=== PATIENT | female | born 1995 | race Caucasian/White ===

== ENCOUNTER 2020-02-18 12:33 | Emergency (ER) | payer OTHER ==
[~2020-02-18] VITALS: Ht 160 cm; Wt 63.5 kg
[~2020-02-18 12:33] MED LIST: AMOX500 PO; ANTIBIOTIC PO; BIRTH CONTROL PILL; CELE200 PO; CELEXA; CITA20 PO; DOCU100 PO; GABA300 PO; GABA400 PO; GABAPENTIN; HYDACE10B PO; HYDACE5 PO; HYDHCL25 PO; IBUP600 PO; IBUP800 PO; LORA10ER PO; MEBE100 PO; METCAR500 PO; NITR100CA PO; Naprosyn500 MG PO; OXYACE5T PO; OXYC10TA19 PO; OXYC5 PO; POTCHL20ER PO; PROM25 PO; RXOXYACE PO; SULTRIDS PO; SULTRISS PO; TRAM50 PO; ZYRTEC; [UNRECOGNIZED DRUG - OTHER]
[2020-02-18] MEDS ORDERED: IRON18 MG (14:08)
[2020-02-18] MEDS ORDERED: Bactrim Ds Tab1 EACH PO (14:09)
== END 2020-02-18 14:15 | disposition home or self-care (01) ==
LOC: ER 12:33
DX: L03.011 Cellulitis of right finger (principal); B07.9 Viral wart, unspecified; F17.200 Nicotine dependence, unspecified, uncomplicated; Z88.5 Allergy status to narcotic agent; Z79.3 Long term (current) use of hormonal contraceptives
CPT/HCPCS: 99282

== ENCOUNTER 2020-07-12 04:00 | Emergency (ER) | payer OTHER ==
[~2020-07-12] VITALS: Ht 160 cm; Wt 68.0 kg
[~2020-07-12 04:00] MED LIST changes: +Bactrim Ds Tab1 EACH PO; +IRON18 MG
[2020-07-12 05:18] LABS: BASOPHILS ABSOLUTE AUTO 0.03 K/mm3 (0.00-0.23); BASOPHILS PERCENT AUTO 0 % (0-2); EOSINOPHILS ABSOLUTE AUTO 0.15 K/mm3 (0.00-0.68); EOSINOPHILS PERCENT AUTO 2 % (0-6); Hematocrit 41.3 % (33.0-51.0); Hemoglobin 13.5 g/dL (11.5-16.0); IMMATURE GRAN ABSOLUTE AUTO 0.03 K/mm3 (0.00-0.10); IMMATURE GRAN PERCENT AUTO 0 % (0-1); LYMPHOCYTES ABSOLUTE AUTO 2.91 K/mm3 (0.84-5.20); LYMPHOCYTES PERCENT AUTO 32 % (21-46); MONOCYTES ABSOLUTE AUTO 0.75 K/mm3 (0.16-1.47); MONOCYTES PERCENT AUTO 8 % (4-13); Mean Corpuscular HGB 28.9 pg (26.0-34.0); Mean Corpuscular HGB Conc 32.7 g/dL (31.5-36.5); Mean Corpuscular Volume 88 fL (80-100); Mean Platelet Volume 9.9 fL (9.1-12.4); NEUTROPHILS ABSOLUTE AUTO 5.16 K/mm3 (1.96-9.15); NEUTROPHILS PERCENT AUTO 57 % (41-73); Platelet Count 342 K/mm3 (150-400); RDW Coefficient Variation 12.5 % (11.7-14.2); Red Blood Cell Count 4.67 M/mm3 (3.80-5.20); White Blood Cell Count 9.03 K/mm3 (4.00-11.30)
[2020-07-12 05:41] LABS: Alanine Aminotransfer (ALT/SGP 26 U/L (12-78); Albumin, Blood 3.4 g/dL (3.4-5.0); Albumin/Globulin Ratio 0.9 (0.8-1.8); Alk Phos 66 U/L (50-136); Anion Gap 6 mmol/L (6-16); Aspartate Aminotrans (AST/SGOT 13 U/L (12-37); Bilirubin, Total 0.2 mg/dL (0.1-1.0); Blood Urea Nitrogen 10 mg/dL (8-24); Bun/Creatinine Ratio 14.8 (12.0-20.0); CO2, Blood 24 mmol/L (21-32); Calcium, Blood 8.8 mg/dL (8.5-10.1); Chloride, Blood 111 mmol/L (98-108); Creatinine, Blood 0.68 mg/dL (0.40-1.00); Globulin, Blood 3.6 g/dL (2.2-4.0); Glomerular Filtration Rate >60 (60-); Glucose, Blood 87 mg/dL (70-99); Sodium, Blood 141 mmol/L (136-145)
[2020-07-12] MEDS ORDERED: Valium5 MG PO (06:01)
[2020-07-12] MEDS ORDERED: ACETAMINOPHEN500 MG PO (06:01)
[2020-07-12] MEDS ORDERED: IBUP600 PO (06:01)
[2020-07-12] MEDS ORDERED: LIDO700A20 TOP (06:01)
[2020-07-12 06:08] LABS: Source, Urine Clean Catch
[2020-07-12 06:33] LABS: Appearance, Urine Hazy (Clear); Bilirubin, Urine Neg (Neg); Blood, Urine Neg (Neg); Color, Urine Yellow (P-Yellow); Glucose Qualitative, Urine Neg (Neg); Ketones, Urine Neg (Neg); Leukocyte Esterase, Urine 2+ (Neg); Nitrite, Urine Neg (Neg); Protein, Urine Neg (Neg); Specific Gravity, Urine 1.015 (1.003-1.022); Urobilinogen, Urine NORM (Normal); pH, Urine 6.5 (5.0-8.0)
[2020-07-12 06:45] LABS: Amorphous Light (0-Heavy); Bacteria Many /hpf; Mucus Mod (0-Heavy); Red Blood Cells, Urine 0-2 /hpf (0-2); Squamous Epithelial Cells Many /hpf (Few)
[2020-07-12] MEDS ORDERED: Macrobid 100 M100 MG PO (06:52)
== END 2020-07-12 07:22 | disposition home or self-care (01) ==
LOC: ER 04:00
PROVIDERS: Emergency Medicine
DX: N39.0 Urinary tract infection, site not specified (principal); I25.2 Old myocardial infarction; Z88.5 Allergy status to narcotic agent; Z79.899 Other long term (current) drug therapy
CPT/HCPCS: 36415; 80053; 81001; 83690; 85025; 99283; A9270

== ENCOUNTER 2020-09-01 20:13 | Emergency (ER) | payer OTHER ==
[~2020-09-01] VITALS: Ht 160 cm; Wt 64.9 kg
[~2020-09-01 20:13] MED LIST changes: +ACETAMINOPHEN500 MG PO; +LIDO700A20 TOP; +Macrobid 100 M100 MG PO; +Valium5 MG PO
[2020-09-01 20:35] LABS: BASOPHILS ABSOLUTE AUTO 0.04 K/mm3 (0.00-0.23); BASOPHILS PERCENT AUTO 0 % (0-2); EOSINOPHILS ABSOLUTE AUTO 0.06 K/mm3 (0.00-0.68); EOSINOPHILS PERCENT AUTO 1 % (0-6); Hematocrit 40.9 % (33.0-51.0); Hemoglobin 13.6 g/dL (11.5-16.0); IMMATURE GRAN ABSOLUTE AUTO 0.02 K/mm3 (0.00-0.10); IMMATURE GRAN PERCENT AUTO 0 % (0-1); LYMPHOCYTES PERCENT AUTO 23 % (21-46); MONOCYTES ABSOLUTE AUTO 0.51 K/mm3 (0.16-1.47); MONOCYTES PERCENT AUTO 6 % (4-13); Mean Corpuscular HGB 29.4 pg (26.0-34.0); Mean Corpuscular HGB Conc 33.3 g/dL (31.5-36.5); Mean Corpuscular Volume 89 fL (80-100); Mean Platelet Volume 9.7 fL (9.1-12.4); NEUTROPHILS ABSOLUTE AUTO 6.25 K/mm3 (1.96-9.15); NEUTROPHILS PERCENT AUTO 70 % (41-73); Platelet Count 317 K/mm3 (150-400); RDW Coefficient Variation 12.5 % (11.7-14.2); RDW Standard Deviation 40.7 fL (35.1-46.3); Red Blood Cell Count 4.62 M/mm3 (3.80-5.20); White Blood Cell Count 8.98 K/mm3 (4.00-11.30)
[2020-09-01 20:53] LABS: Alanine Aminotransfer (ALT/SGP 24 U/L (12-78); Albumin, Blood 3.9 g/dL (3.4-5.0); Alk Phos 75 U/L (50-136); Anion Gap 9 mmol/L (6-16); Aspartate Aminotrans (AST/SGOT 14 U/L (12-37); Bilirubin, Total 0.3 mg/dL (0.1-1.0); Blood Urea Nitrogen 16 mg/dL (8-24); Bun/Creatinine Ratio 15.2 (12.0-20.0); CO2, Blood 25 mmol/L (21-32); Calcium, Blood 9.4 mg/dL (8.5-10.1); Chloride, Blood 107 mmol/L (98-108); Creatinine, Blood 1.05 mg/dL (0.40-1.00); Globulin, Blood 3.9 g/dL (2.2-4.0); Glomerular Filtration Rate >60 (60-); Glucose, Blood 90 mg/dL (70-99); Potassium, Blood 4.2 mmol/L (3.5-5.5); Sodium, Blood 141 mmol/L (136-145); Total Protein, Blood 7.8 g/dL (6.4-8.2)
[2020-09-01 22:11] LABS: Source, Urine Clean Catch
[2020-09-01 22:15] LABS: Bilirubin, Urine Neg (Neg); Blood, Urine 1+ (Neg); Glucose Qualitative, Urine Neg (Neg); Ketones, Urine Neg (Neg); Leukocyte Esterase, Urine 3+ (Neg); Nitrite, Urine Neg (Neg); Protein, Urine 1+ (Neg); Urobilinogen, Urine NORM (Normal)
[2020-09-01 22:22] LABS: Appearance, Urine Hazy (Clear); Color, Urine Yellow (P-Yellow)
[2020-09-01 22:23] LABS: Bacteria Many /hpf; Red Blood Cells, Urine 0-2 /hpf (0-2); Squamous Epithelial Cells Many /hpf (Few); White Blood Cells, Urine 25-50 /hpf (0-5)
[2020-09-01] MEDS ORDERED: Flagyl500 MG PO (22:38)
== END 2020-09-01 23:01 | disposition home or self-care (01) ==
LOC: ER 20:13
PROVIDERS: Physician Assistant
DX: N30.90 Cystitis, unspecified without hematuria (principal); F17.200 Nicotine dependence, unspecified, uncomplicated; Z79.899 Other long term (current) drug therapy; Z88.5 Allergy status to narcotic agent
CPT/HCPCS: 74176; 80053; 81001; 81025; 83690; 85025; 87086; 99284-25; A9270

== ENCOUNTER 2021-01-24 18:50 | Emergency (ER) | payer OTHER ==
[~2021-01-24] VITALS: Ht 160 cm; Wt 65.8 kg
[~2021-01-24 18:50] MED LIST changes: +Flagyl500 MG PO
[2021-01-24 19:18] LABS: BASOPHILS ABSOLUTE AUTO 0.04 K/mm3 (0.00-0.23); BASOPHILS PERCENT AUTO 1 % (0-2); EOSINOPHILS ABSOLUTE AUTO 0.12 K/mm3 (0.00-0.68); EOSINOPHILS PERCENT AUTO 2 % (0-6); Hemoglobin 13.1 g/dL (11.5-16.0); IMMATURE GRAN ABSOLUTE AUTO 0.02 K/mm3 (0.00-0.10); IMMATURE GRAN PERCENT AUTO 0 % (0-1); LYMPHOCYTES ABSOLUTE AUTO 1.94 K/mm3 (0.84-5.20); LYMPHOCYTES PERCENT AUTO 24 % (21-46); MONOCYTES ABSOLUTE AUTO 0.56 K/mm3 (0.16-1.47); MONOCYTES PERCENT AUTO 7 % (4-13); Mean Corpuscular HGB 28.9 pg (26.0-34.0); Mean Corpuscular HGB Conc 32.8 g/dL (31.5-36.5); Mean Corpuscular Volume 88 fL (80-100); Mean Platelet Volume 10.7 fL (9.1-12.4); NEUTROPHILS ABSOLUTE AUTO 5.37 K/mm3 (1.96-9.15); NEUTROPHILS PERCENT AUTO 67 % (41-73); Platelet Count 326 K/mm3 (150-400); RDW Coefficient Variation 12.6 % (11.7-14.2); RDW Standard Deviation 41.1 fL (35.1-46.3); Red Blood Cell Count 4.53 M/mm3 (3.80-5.20); White Blood Cell Count 8.05 K/mm3 (4.00-11.30)
[2021-01-24 19:41] LABS: Anion Gap 6 mmol/L (6-16); Blood Urea Nitrogen 13 mg/dL (8-24); Bun/Creatinine Ratio 15.3 (12.0-20.0); CO2, Blood 23 mmol/L (21-32); Calcium, Blood 8.9 mg/dL (8.5-10.1); Chloride, Blood 110 mmol/L (98-108); Creatinine, Blood 0.85 mg/dL (0.40-1.00); Glomerular Filtration Rate >60 (60-); Glucose, Blood 85 mg/dL (70-99); Potassium, Blood 3.7 mmol/L (3.5-5.5); Sodium, Blood 139 mmol/L (136-145)
== END 2021-01-24 21:39 | disposition home or self-care (01) ==
LOC: ER 18:50
PROVIDERS: Student in an Organized Health Care Education/Training Program
DX: R55 Syncope and collapse (principal); F17.200 Nicotine dependence, unspecified, uncomplicated; Z88.5 Allergy status to narcotic agent; Z79.899 Other long term (current) drug therapy
CPT/HCPCS: 80048; 84484; 85025; 93005; 93010; 99285-25

== ENCOUNTER → 2024-06-27 | Outpatient (CLI) | payer MEDICARE, OTHER | LOC: PLD 13:30 → LAB 13:30 → LAB SHORT 13:30 | DX: D06.9 Carcinoma in situ of cervix, unspecified (principal); Z87.42 Personal history of other diseases of the female genital tract | CPT/HCPCS: 88305; 88342 ==

== ENCOUNTER 2024-08-18 01:48 | Emergency (ER) | payer MEDICARE, OTHER ==
[~2024-08-18] VITALS: Ht 160 cm; Wt 83.0 kg
[2024-08-18 02:02] VITALS: BP 125/86
[2024-08-18] MEDS ORDERED: Acetaminophen 500 MG Tab PO ONE (02:05)
[2024-08-18] MEDS ORDERED: Ketorolac Tromethamine 30mg Vial IM ONE (02:05)
== END 2024-08-18 02:41 | disposition home or self-care (01) ==
LOC: ER 01:48
DX: S60.211A Contusion of right wrist, initial encounter (principal); F43.10 Post-traumatic stress disorder, unspecified; F17.200 Nicotine dependence, unspecified, uncomplicated; Z88.5 Allergy status to narcotic agent; W22.01XA Walked into wall, initial encounter
CPT/HCPCS: 73100; 73130; 96372; 99283-25; A9270; J1885

== ENCOUNTER 2024-09-06 08:03 | Day surgery (SDC) | payer MEDICARE, OTHER ==
[~2024-09-06] VITALS: Ht 160 cm; Wt 84.1 kg
[2024-09-06] MEDS ORDERED: PREG200 PO (08:26)
[2024-09-06] MEDS ORDERED: ZOLOFT50 MG PO (08:27)
[2024-09-06] MEDS ORDERED: Flagyl500 MG (08:29)
[2024-09-06] MEDS ORDERED: IRON18 M1 PO (08:31)
[2024-09-06] MEDS ORDERED: Lactated Ringer's 1,000 ML IV ONE (08:45)
[2024-09-06] MEDS ORDERED: FentaNYL Citrate 50 MCG/ML 2 ML Injection ONE (09:00)
[2024-09-06] MEDS ORDERED: propofoL 20 ML IV ONE (09:00)
[2024-09-06] MEDS ORDERED: Midazolam HCl 1MG / ML 2ML Vial ONE (09:00)
--- NOTE | 2024-09-06 09:07 | NUR ---
09/06/24 0907 TRACY DODGE EKG DONE PER DR COSBY
[2024-09-06] MEDS ORDERED: Ondansetron HCl 2 MG / ML 2ML Vial ONE ×2 (09:12→10:32)
[2024-09-06] MEDS ORDERED: Dexamethasone Sod Phos 10 MG/ML 1ML VIAL ONE (09:12)
[2024-09-06] MEDS ORDERED: Lidocaine HCl 2% 10 ML SDA XX ONE (09:19)
[2024-09-06] MEDS ORDERED: Ketorolac Tromethamine 30mg Vial ONE (09:24)
--- NOTE | 2024-09-06 09:46 | NUR ---
09/06/24 0946 Leti Robbins PT TO PACU ASLEEP , LMA IN PLACE. MDA AT BEDSIDE. MDA AWARE OF BP, NO ORDERS RECEIVED AT THIS TIME. NO DRAINAGE ON PERIPAD AT THIS TIME
--- NOTE | 2024-09-06 10:13 | NUR ---
09/06/24 1013 Leti Robbins REPORT GIVEN TO VIJAYA HENSON
[2024-09-06 10:48] VITALS: BP 93/69
== END 2024-09-06 11:05 | disposition home or self-care (01) ==
LOC: ORSCSDS 08:03
PROVIDERS: Obstetrics & Gynecology
PROC: 0UBC7ZZ Excision of Cervix, Via Natural or Artificial Opening (ICD-10-PCS; principal; 2024-09-06 09:30)
DX: D06.0 Carcinoma in situ of endocervix (principal); I25.2 Old myocardial infarction; I47.10 Supraventricular tachycardia, unspecified; F41.9 Anxiety disorder, unspecified; F32.A Depression, unspecified; F17.210 Nicotine dependence, cigarettes, uncomplicated; Z79.899 Other long term (current) drug therapy
CPT/HCPCS: 88305; 88342; 93005; 93010; J1100; J1885; J2003; J2250; J2405; J2704; J3010

== ENCOUNTER 2024-09-09 06:18 | Day surgery (SDC) | payer MEDICARE, OTHER ==
[~2024-09-09] VITALS: Ht 160 cm; Wt 84.2 kg
[~2024-09-09 06:18] MED LIST changes: +Flagyl500 MG; +IRON18 M1 PO; +Lactated Ringer's 1,000 ML IV ONE; +Lidocaine 1%-Epineph 1:100000 20 ML MDV ONE; +PREG200 PO; +Sodium Bicarb 8.4% 1 MEQ/ML 50 ML Vial ONE; +ZOLOFT50 MG PO
[2024-09-09] MEDS ORDERED: Midazolam HCl 1MG / ML 2ML Vial ONE (06:50)
[2024-09-09] MEDS ORDERED: Dexmedetomidine HCL 200 MCG / 2 ML ONE (06:53)
[2024-09-09] MEDS ORDERED: Lidocaine 1%-Epineph 1:100000 20 ML MDV ONE (06:57)
[2024-09-09] MEDS ORDERED: METAXALONE 400 MG (07:01)
[2024-09-09] MEDS ORDERED: Lactated Ringer's 1,000 ML IV ONE ×2 (07:09→09:24)
[2024-09-09] MEDS ORDERED: CeFAZolin Sodium 2,000 MG VIAL ONE (07:09)
--- NOTE | 2024-09-09 07:09 | NUR ---
09/09/24 0709 Stephanie Kuhn 0705: ANESTHESIA NOTIFIED OF HR BEING 137 AND SUSTAINING, PER PATIENT THIS IS NORMAL FOR HER SHE HAS SVT AND HAS HAD TWO ABLATIONS. NO NEW ORDERS PER ANESTHESIA.
[2024-09-09] MEDS ORDERED: Bupivacaine 0.5% HCl 5 MG/ML 30MLVIAL ONE (07:15)
[2024-09-09] MEDS ORDERED: Bupivacaine HCl 0.25% 50 ML Vial ONE (07:15)
[2024-09-09] MEDS ORDERED: FentaNYL Citrate 50 MCG/ML 2 ML Injection ONE (07:35)
[2024-09-09] MEDS ORDERED: propofoL 20 ML IV ONE (07:35)
[2024-09-09] MEDS ORDERED: Dexamethasone Sod Phos 10 MG/ML 1ML VIAL ONE (07:35)
[2024-09-09] MEDS ORDERED: Phenylephrine HCl 100 MCG/ML-NS 10MLSYR (1MG/10ML) ONE (07:44)
[2024-09-09] MEDS ORDERED: Ketorolac Tromethamine 30mg Vial ONE (08:12)
--- NOTE | 2024-09-09 08:27 | NUR ---
09/09/24 0827 Leti Robbins mda removed oral airway upon arrival to pacu
--- NOTE | 2024-09-09 09:03 | NUR ---
09/09/24 0902 Leti Robbins ICE PLACED ON RIGHT ARM, ARM ELEVATED ON PILLOW. PT DROWSY BUT ORIENTED X4. CAP REFILL <2, RIGHT FINGERS WARM AND DRY. PT REPORTS NUMBNESS OF RIGHT ARM FROM BLOCK. DENIES PAIN OR NAUSEA AT THIS TIME. UNABLE TO PALPATE RIGHT RADIAL PULSE DUE TO SPLINT. SPLINT CLEAN DRY AND INTACT
[2024-09-09 09:55] VITALS: BP 90/67
== END 2024-09-09 10:05 | disposition home or self-care (01) ==
LOC: ORSCSDS 06:18
PROVIDERS: Orthopaedic Surgery
PROC: 0PSM04Z Reposition Right Carpal with Internal Fixation Device, Open Approach (ICD-10-PCS; principal; 2024-09-09 07:30)
DX: S62.021A Displaced fracture of middle third of navicular [scaphoid] bone of right wrist, initial encounter for closed fracture (principal); F41.9 Anxiety disorder, unspecified; F32.A Depression, unspecified; I25.2 Old myocardial infarction; F17.210 Nicotine dependence, cigarettes, uncomplicated; Z79.899 Other long term (current) drug therapy
CPT/HCPCS: C1713; C1769; J0690; J1100; J1885; J2250; J2371; J2704; J3010; J7120